=== PATIENT | female | born 1970 | race Caucasian/White ===

== ENCOUNTER 2024-03-02 13:32 | Emergency (ER) | payer OTHER, SELFPAY ==
[2024-03-02 13:48] VITALS: BP 138/89
[2024-03-02 14:04] LABS: % Basophils 0.7 % (0-2); % Immature Granulocytes 0.1 % (0-0.5); % Lymphocytes 28.8 % (20.5-51.1); % Monocytes 7.9 % (1.7-9.3); % Neutrophils 62.5 % (42.2-75.2); Absolute Basophils 0.1 10^3/uL (0-0.2); Absolute Lymphocytes 2.5 10^3/uL (1.2-3.4); Absolute Monocytes 0.7 10^3/uL (0.1-0.6); Absolute Neutrophils 5.4 10^3/uL (1.4-6.5); Hematocrit 42.3 % (37.0-47.0); Hemoglobin 14.7 g/dL (12.0-16.0); Mean Corp Hgb Conc. 34.8 g/dL (33.0-37.0); Mean Corpuscular Hgb 30.2 pg (27.0-31.0); Mean Corpuscular Volume 86.9 fL (81.0-99.0); Mean Platelet Volume 10.6 fL (7.4-10.4); Nucleated Red Blood Cells % 0 %; Platelet Count 233 10^3/uL (130-400); Red Blood Cell Count 4.87 10^6/uL (4.20-5.40); Red Cell Dist. Width 12.6 % (11.5-14.5); White Blood Cell Count 8.6 10^3/uL (4.8-10.8)
[2024-03-02 14:17] LABS: ALT (SGPT) 17 U/L (0-35); AST (SGOT) 28 U/L (14-36); Albumin 4.8 g/dl (3.5-5.0); Alkaline Phosphatase 94 U/L (38-126); Blood Urea Nitrogen 16 mg/dl (7-17); Calcium 10.1 mg/dl (8.4-10.2); Carbon Dioxide 23 mmol/L (22-30); Chloride 105 mmol/L (98-107); Glucose 101 mg/dl (70-99); Potassium 4.3 mmol/L (3.5-5.1); Sodium 138 mmol/L (135-145); Total Bilirubin 0.6 mg/dl (0.2-1.3); Total Protein 7.7 g/dl (6.3-8.2); eGFR > 60.00
[2024-03-02 14:28] LABS: Troponin I < 0.012 ng/ml
[2024-03-02] MEDS: CARAFATE SUSPENSION 1 GM PO (16:45)
[2024-03-02 16:53] VITALS: BP 127/95
--- NOTE | 2024-03-02 16:58 | ED.GENMED ---
History of Present Illness
General
Chief Complaint: Chest Pain
Time Seen by Provider: 03/02/24 15:49
History of Present Illness
History of Present Illness:
53-year-old female presents to the emergency department for evaluation of central chest pressure that began yesterday. She states she had a similar episode approximately 10 days ago that lasted for less than 24 hours and resolved spontaneously. No
obvious provoking or palliating factors but she does feel as though the symptoms are worse first thing in the morning. She felt as though pain increased after eating today however due to nausea she has had a generally poor appetite. Denies any
pleuritic pain. No vomiting or diarrhea. She openly endorses concern for esophageal carcinoma as she has a family history of this although she is not a smoker and does not use any tobacco products. Denies significant recent alcohol use. There is
no positional nature to the pain currently
Past History
Past History
ED Past Medical History: Other (diverticulitis) and Other (Interstitial nephritis)
ED Past Surgical History: None and
Social History
Tobacco: Non-smoker
Personal:
Living: with family
Employment: Employed
Family History
Family History: Hypertension
Review of Systems
Review of Systems
Allergies reviewed?: Yes
All Other Systems: ROS reviewed and negative except as documented in HPI and ROS
Phy Exam
Physical Exam
Physical Exam:
GEN: Well appearing, NAD, WDWN
Eyes: PERRLA, EOMs intact, no scleral icterus
HENT: NCAT, oral mucosa moist
Lungs: CTAB, no wheezes, rales, rhonchi, normal chest wall excursion
Cardiac: RRR, no M/R/G, no peripheral edema. Radial pulses 2+ bilat
Neuro: AO x 3
MSK: No gross deformity or ecchymosis. No edema. No digital clubbing
Skin: No rashes, petechiae. Normal color, no pallor or jaundice.
Psych: Calm, cooperative, proper hygiene
Scores
Heart Score for Chest Pain Patients
STEMI patient?: No
History: Slightly or Non-Suspicious
ECG: Normal
Age: >45 - <65 years
Risk Factors: No Risk Factors
Troponin: </= Normal Limit
Heart Score for Chest Pain Patients: 1
Heart Score Risk: 2.5% MACE over next 6 weeks
Course
Orders/Labs/Results
Orders:
Orders
03/02/24 13:34
ECG [Electrocardiogram (*1)] Urgent
Reason for Study: Chest Pain
03/02/24 13:35
EKG- Treatment ONCE
03/02/24 13:54
Complete Blood Count/With Diff Urgent
Comprehensive Metabolic Panel Urgent
Troponin I Urgent
03/02/24 15:59
Sucralfate Suspension [Carafate Suspension] 1 gm PO NOW STA
CR Chest - 2 Views Urgent
Comment:
Reason For Exam: chest pain
Abnormal Lab Results
03/02/24
13:54
MPV 10.6 H fL
(7.4-10.4)
Absolute Monos (auto) 0.7 H 10^3/uL
(0.1-0.6)
Glucose 101 H mg/dl
(70-99)
03/02/24 13:54
03/02/24 13:54
Vital Signs
Initial and Last Documented VS:
Initial Vital Signs
Temp Pulse Resp BP Pulse Ox
98.7 F 75 18 138/89 98
03/02/24 13:48 03/02/24 13:48 03/02/24 13:48 03/02/24 13:48 03/02/24 13:48
Last Documented Vital Signs
Temp Pulse Resp BP Pulse Ox
98.7 F 70 18 127/95 100
03/02/24 13:48 03/02/24 16:53 03/02/24 16:53 03/02/24 16:53 03/02/24 16:53
MDM/Problems Addressed
MDM/Problems Addressed:
53-year-old female presents with central chest pressure. Given that she notes some degree of worsening after eating as well as worsening in the morning this is most likely gastrointestinal/esophageal pain. Her cardiac enzymes are reassuring and
EKG is nonischemic. She has no significant cardiac risk factors and no exertional nature to symptoms. Will trial her on PPIs and Carafate, recommend close outpatient GI follow-up. No pleuritic nature or calf swelling concerning for PE. Discussed
ED return parameters
Comment
Comment:
EKG independently interpreted by me shows a normal sinus rhythm at a rate of [address] changes concerning for ischemia, QTc of 470
*Critical Care Note
Total Time (30-74mins, 75-104mins- exclusive of procedures): Not Applicable
ED Attending Note
-
Portions of this chart may have been created with voice recognition software.� Occasional wrong word or��sound alike� substitutions may have occurred due to the inherent limitations of voice recognition software.
Discharge Plan
Departure
Patient Disposition: Home (Routine Discharge)
Date of Disposition: 03/02/24
Time of Disposition: 17:10
Patient with high blood pressure during this ER visit?: No
Discharge Problem:
Esophagitis
Instructions: Esophagitis
Prescriptions:
New
pantoprazole 40 mg tablet,delayed release (DR/EC)
40 mg PO BID Qty: 30 0RF
sucralfate [Carafate] 1 gram tablet
1 g PO AC Qty: 60 0RF
Rx Instructions:
Mix in 10mL clear liquid to create a slurry before consumption
No Action
citalopram 40 mg Tablet
40 mg PO DAILY
lorazepam
0.25 mg PO PRN PRN (Reason: anxiety)
Referrals:
Georgia Lockett MD [Active] -
Melissa West CRNP [Family Provider] -
Interventions
Interventions:
*Risk Screen - Suicide Last Done: 03/02/24 17:46
*General Assessment Last Done: 03/02/24 17:47
*Neglect/Abuse Screening Last Done: 03/02/24 17:46
*ED COVID-19 Vaccine History Last Done: 03/02/24 17:47
*Nursing Disposition Last Done: 03/02/24 17:47
ED- Cardiac Assessment Last Done: 03/02/24 16:54
Discharge Date and Time
Discharge Date/Time: 03/02/24 17:48
Print Language: TANZANIAN
== END 2024-03-02 17:48 | disposition home or self-care (01) ==
LOC: EMR 13:32
PROVIDERS: EMERGENCY PHYSICIAN Emergency Medicine; FAMILY PHYSICIAN Nurse Practitioner
DX: K20.90 Esophagitis, unspecified without bleeding (principal); R07.89 Other chest pain; R11.0 Nausea; K57.92 Diverticulitis of intestine, part unspecified, without perforation or abscess without bleeding; Z80.0 Family history of malignant neoplasm of digestive organs; Z88.6 Allergy status to analgesic agent
CPT/HCPCS: 99283; 71046; 80053; 84484; 85025; 93005

== ENCOUNTER 2024-10-19 07:06 | Emergency (ER) | payer OTHER, SELFPAY ==
[2024-10-19 07:10] VITALS: BP 164/96
[2024-10-19 07:20] VITALS: BMI 28.7
[2024-10-19 07:21] VITALS: BP 155/90
[2024-10-19 07:44] LABS: % Basophils 0.7 % (0-2); % Immature Granulocytes 0.1 % (0-0.5); % Lymphocytes 32.1 % (20.5-51.1); % Monocytes 9.6 % (1.7-9.3); % Neutrophils 57.5 % (42.2-75.2); Absolute Basophils 0.1 10^3/uL (0-0.2); Absolute Lymphocytes 2.2 10^3/uL (1.2-3.4); Absolute Monocytes 0.7 10^3/uL (0.1-0.6); Hematocrit 44.5 % (37.0-47.0); Hemoglobin 14.7 g/dL (12.0-16.0); Mean Corpuscular Hgb 29.7 pg (27.0-31.0); Mean Corpuscular Volume 89.9 fL (81.0-99.0); Mean Platelet Volume 9.9 fL (7.4-10.4); Nucleated Red Blood Cells % 0 %; Platelet Count 212 10^3/uL (130-400); Red Blood Cell Count 4.95 10^6/uL (4.20-5.40); Red Cell Dist. Width 12.9 % (11.5-14.5); White Blood Cell Count 6.9 10^3/uL (4.8-10.8)
--- NOTE | 2024-10-19 07:44 | ED.GENMED ---
History of Present Illness
General
Chief Complaint: Chest Pain
Time Seen by Provider: 10/19/24 07:19
History of Present Illness
History of Present Illness:
54-year-old female presents the emergency department for evaluation of central chest pressure that has been ongoing for the past 4 days. She states it started after having a choking episode, she is very confident that the episode was definitively
choking with an airway obstruction as opposed to an esophageal food obstruction, states she coughed forcefully several times to bring up the food. States several hours later she started with chest pressure that has worsened since that time. Chest
pain is not pleuritic, nonradiating, not positional. Denies any hemoptysis or hematemesis, denies any fevers, chills, or night sweats.
Past History
Past History
ED Past Medical History: Other (diverticulitis) and Other (Interstitial nephritis)
ED Past Surgical History: None and
Social History
Tobacco: Non-smoker
Personal:
Living: with family
Employment: Employed
Family History
Family History: Hypertension
Review of Systems
Review of Systems
Allergies reviewed?: Yes
All Other Systems: ROS reviewed and negative except as documented in HPI and ROS
Phy Exam
Physical Exam
Physical Exam:
GEN: Appears uncomfortable, tearful
HEENT: Oral mucosa moist, no scleral icterus
Cardiac: Regular rate and rhythm, no murmurs or rubs
Chest: No palpable crepitus, no chest wall tenderness
Lung: No respiratory distress, no tachypnea, lungs clear to auscultation bilaterally
MSK: No gross deformity or injuries
Skin: Good color, no pallor or jaundice, no rashes
Neuro: AO x3, moves all extremities freely
Psych: Appears anxious
Scores
Heart Score for Chest Pain Patients
STEMI patient?: Not applicable
Course
Orders/Labs/Results
Orders:
Orders
10/19/24 07:07
Electrocardiogram (*1) Urgent
Reason for Study: Chest Pain
EKG- Treatment ONCE
10/19/24 07:26
CR Chest - 2 Views Urgent
Comment:
Reason For Exam: chest pain after choking
10/19/24 07:35
Complete Blood Count/With Diff Urgent
Comprehensive Metabolic Panel Urgent
Troponin I Urgent
10/19/24 08:16
Mag Hydrox/Al Hydrox/Simeth [Maalox] 30 ml Phenobarb/Hyoscy/Atropine/Scop [] 10 ml Viscous Lidocaine 2% [Xylocaine Viscous Cup] 10 ml PO NOW
10/19/24 08:46
Mag Hydrox/Al Hydrox/Simeth [Maalox] 30 ml .ROUTE .STK-MED ONE
Phenobarb/Hyoscy/Atropine/Scop [] 10 ml .ROUTE .STK-MED ONE
Viscous Lidocaine 2% [Xylocaine Viscous Cup] 15 ml .ROUTE .STK-MED ONE
10/19/24 09:25
CT Chest With Iv Contrast Urgent
Comment:
Reason For Exam: severe chest pain after choking episode
Abnormal Lab Results
10/19/24
07:35
Absolute Monos (auto) 0.7 H 10^3/uL
(0.1-0.6)
Monocytes % 9.6 H %
(1.7-9.3)
Glucose 102 H mg/dl
(70-99)
10/19/24 07:35
10/19/24 07:35
Vital Signs
Initial and Last Documented VS:
Initial Vital Signs
Temp Pulse Resp BP Pulse Ox
98.7 F 76 18 164/96 99
10/19/24 07:10 10/19/24 07:10 10/19/24 07:10 10/19/24 07:10 10/19/24 07:10
Last Documented Vital Signs
Temp Pulse Resp BP Pulse Ox
98.7 F 67 7 128/87 97
10/19/24 07:10 10/19/24 10:30 10/19/24 10:30 10/19/24 10:20 10/19/24 10:30
MDM/Problems Addressed
MDM/Problems Addressed:
Cardiac enzymes reassuring. No clinical or imaging evidence of esophageal rupture. Doubt pulmonary embolism clinically based on the preceding event.
Comment
Comment:
EKG independently interpreted by me shows a normal sinus rhythm at a rate of [address] changes concerning for ischemia
*Critical Care Note
Total Time (30-74mins, 75-104mins- exclusive of procedures): Not Applicable
ED Attending Note
-
Portions of this chart may have been created with voice recognition software.� Occasional wrong word or��sound alike� substitutions may have occurred due to the inherent limitations of voice recognition software.
Discharge Plan
Departure
Patient Disposition: Home (Routine Discharge)
Date of Disposition: 10/19/24
Time of Disposition: 10:37
Patient with high blood pressure during this ER visit?: No
Discharge Problem:
Atypical chest pain
Instructions: Chest Pain That Is Not Caused by the Heart (DC)
Prescriptions:
New
methocarbamol 500 mg tablet
500 - 1,000 mg PO QID PRN (Reason: pain) Qty: 15 0RF
No Action
citalopram 40 mg Tablet
40 mg PO DAILY
lorazepam
0.25 mg PO PRN PRN (Reason: anxiety)
pantoprazole 40 mg tablet,delayed release (DR/EC)
40 mg PO BID Qty: 30 0RF
sucralfate [Carafate] 1 gram tablet
1 g PO AC Qty: 60 0RF
Rx Instructions:
Mix in 10mL clear liquid to create a slurry before consumption
Referrals:
Melissa West CRNP [Family Provider] -
Interventions
Interventions:
*Risk Screen - Suicide Last Done: 10/19/24 07:10
*General Assessment Last Done: 10/19/24 07:10
*Neglect/Abuse Screening Last Done: 10/19/24 07:10
*ED- Fall Risk Assessment Last Done: 10/19/24 07:20
*ED COVID-19 Vaccine History Last Done: 10/19/24 07:20
*Nursing Disposition Last Done: 10/19/24 11:21
ED- Cardiac Assessment Last Done: 10/19/24 07:24
Discharge Date and Time
Discharge Date/Time: 10/19/24 10:50
Print Language: BELIZEAN
[2024-10-19 08:00] LABS: ALT (SGPT) 19 U/L (0-35); AST (SGOT) 28 U/L (14-36); Albumin 4.4 g/dl (3.5-5.0); Alkaline Phosphatase 88 U/L (38-126); Blood Urea Nitrogen 13 mg/dl (7-17); Calcium 9.6 mg/dl (8.4-10.2); Carbon Dioxide 25 mmol/L (22-30); Chloride 106 mmol/L (98-107); Estimated Creatinine Clearance 96 ml/min; Glucose 102 mg/dl (70-99); Potassium 4.2 mmol/L (3.5-5.1); Sodium 137 mmol/L (135-145); Total Bilirubin 0.8 mg/dl (0.2-1.3); Total Protein 7.3 g/dl (6.3-8.2); eGFR > 60.00
[2024-10-19 08:11] LABS: Troponin I < 0.012 ng/ml
[2024-10-19] MEDS: MAALOX 50 PO (08:48)
[2024-10-19 08:56] VITALS: BP 144/87
[2024-10-19 09:00] VITALS: BP 136/89
[2024-10-19 10:12] VITALS: BP 128/87
[2024-10-19 10:20] VITALS: BP 128/87
--- NOTE | 2024-10-19 11:18 | EDRN ---
Discharge instructions given to patient by David Belle PA-C.
== END 2024-10-19 10:50 | disposition home or self-care (01) ==
LOC: EMR 07:06
PROVIDERS: Physician Assistant; EMERGENCY PHYSICIAN Emergency Medicine; FAMILY PHYSICIAN Nurse Practitioner
DX: R07.89 Other chest pain (principal); R09.89 Other specified symptoms and signs involving the circulatory and respiratory systems
CPT/HCPCS: 99285; 71046; 71260; 80053; 84484; 85025; 93005; Q9967

== ENCOUNTER → 2024-12-28 13:15 | Outpatient (REF) | payer OTHER, SELFPAY | LOC: WDC 13:15 | PROVIDERS: ATTENDING PHYSICIAN Family Medicine | DX: N64.4 Mastodynia (principal) | CPT/HCPCS: 76642 ==